=== PATIENT | male | born 1960 | race Caucasian/White ===

== ENCOUNTER → 2017-03-19 | Outpatient (CLI) | payer OTHER ==
--- NOTE | 2017-03-19 17:26 | RAD ---
EXAM DESCRIPTION: Knee,Right Complete CLINICAL HISTORY: 56 years, Male, CH. RT KNEE PN S/P KNEE SURGERY 1979 M25.56 COMPARISON: None TECHNIQUE: Three views of the right knee FINDINGS: Advanced degenerative changes of the right knee with a single surgical screw tracking from anterolateral to posterior medial through the tibial metaphysis is noted. Marginal osteophytes and joint surface irregularity is present involving all compartments with a small joint effusion or synovitis in the suprapatellar bursal region. No fracture or dislocation is seen. An intra-articular loose body anteriorly and posteriorly on the lateral view is suggested. IMPRESSION: 1. Moderately advanced degenerative changes of the right knee. Electronically signed by: Darren Millard MD 03/19/2017 5:25 PM CDT
--- NOTE | 2017-03-19 17:27 | RAD ---
EXAM DESCRIPTION: Lumbar Spine 3 Views CLINICAL HISTORY: CH. LOW BACK PN S/P DISK SURGERY 1997 M54.11 COMPARISON: None Available. TECHNIQUE: AP/lateral/coned-down lateral/both obliques FINDINGS: Normal alignment of the spine with modest degenerative changes and advanced facet joint sclerosis is present. Very rudimentary ribs at T12 are noted with L5 representing a transitional segment likely with any nonmobile incompletely developed L5-S1 disc space. Mild disc space narrowing at the other levels is present with marginal osteophytes noted. IMPRESSION: Moderate degenerative changes and transitional L5 vertebral body with advanced facet sclerosis noted. Electronically signed by: Darren Millard MD 03/19/2017 5:26 PM CDT
== END | disposition home or self-care (01) ==
LOC: YCFC.O 08:32
DX: M54.11 Radiculopathy, occipito-atlanto-axial region (principal); M17.11 Unilateral primary osteoarthritis, right knee

== ENCOUNTER → 2017-04-16 | Outpatient (CLI) | payer OTHER ==
--- NOTE | 2017-04-17 08:50 | US ---
EXAM DESCRIPTION: Carotid Doppler sonogram CLINICAL HISTORY: SYMPTOMS AND SIGNS INVOLVING THE CIRCULATORY AND RESP SYSTEMS COMPARISON: [None Available.] TECHNIQUE: [Color Doppler evaluation of the extracranial carotids] FINDINGS: Right carotid: Atherosclerotic vascular calcification anteriorly at the carotid bulb. Approximate 32% area narrowing. Normal flow velocities and waveforms Peak systolic velocity common carotid artery = 66 cm/s Peak systolic velocity internal carotid artery = 74 cm/s Peak systolic velocity external carotid artery = 186 cm/s ICA CCA ratio 1.1 Retrograde flow is present in the right vertebral artery Left carotid: Mild calcified atherosclerotic vascular calcification in the carotid bulb at the origin of the external carotid artery. No internal carotid artery plaque Peak systolic velocity common carotid artery = 91 cm/s Peak systolic velocity internal carotid artery = 128 cm/s Peak systolic velocity external carotid artery = 189 cm/s ICA CCA ratio 1.4 Antegrade flow is seen in left vertebral artery IMPRESSION: [Mild atherosclerotic involvement of the extracranial carotid arteries. No evidence of hemodynamically significant stenosis by NASCET criteria] Retrograde flow right vertebral artery. This can be seen with proximal right subclavian stenosis, unusual Electronically signed by: Darren Campoverde MD 04/17/2017 8:49 AM CDT
== END ==
LOC: US 14:16
DX: R09.89 Other specified symptoms and signs involving the circulatory and respiratory systems (principal)

== ENCOUNTER → 2017-04-22 | Outpatient (CLI) | payer OTHER | END | disposition home or self-care (01) | LOC: YCFC.O 08:45 | DX: R35.0 Frequency of micturition (principal); I10 Essential (primary) hypertension ==